=== PATIENT | female | born 1970 | race American Indian/Alaskan Native ===

== ENCOUNTER 2016-07-26 19:52 | Emergency (ER) | payer MEDICARE ==
[2016-07-26 20:28] LABS: Basophils % (Auto) 1.2 % (0.0-1.8); Hematocrit 35.6 % (30.3-42.9); Hemoglobin 11.5 gm/dl (10.1-14.3); Mean Corpuscular HGB Conc 32 % (30-34); Mean Corpuscular Hemoglobin 28 pg (28-32); Mean Corpuscular Volume 87 fl (79-97); Platelet Count 302 K/mm3 (140-440); Red Blood Count 4.09 M/mm3 (3.65-5.03); Red Cell Distribution Width 15.2 % (13.2-15.2); White Blood Count 11.7 K/mm3 (4.5-11.0)
[2016-07-26 20:47] LABS: Anion Gap 18 mmol/L; BUN/Creatinine Ratio 21.66; Blood Urea Nitrogen 13 mg/dL (7-17); Calcium 8.8 mg/dL (8.4-10.2); Carbon Dioxide 27 mmol/L (22-30); Chloride 98.2 mmol/L (98-107); Glucose 151 mg/dL (65-100); Sodium 139 mmol/L (137-145)
[2016-07-27 08:34] VITALS: BP 119/72
--- NOTE | 2016-07-27 08:55 | XRay Report ---
ROUTINE CHEST, TWO VIEWS: HISTORY: Shortness of breath. The trachea, heart, mediastinal contour, lung stokes and bony thorax are unremarkable. IMPRESSION: No acute cardiopulmonary process. No significant change since 12/25/14.
--- NOTE | 2016-07-27 09:35 | Emergency Department Report ---
ED Shortness of Breath HPI - General Chief Complaint: Dyspnea/Respdistress Stated Complaint: PRIMO Time Seen by Provider: 07/27/16 08:30 Source: patient Mode of arrival: Wheelchair Limitations: No Limitations - History of Present Illness Initial Comments: 46-year-old female presents to the emergency department complaining of difficulty breathing and swelling. Patient states she has been having shortness of breath and swelling in her legs for approximately one month. She states that she feels "full". Patient reports a history of CHF. She states her doctor changed her "water pill" recently. There are no other complaints. MD Complaint: shortness of breath -: Gradual, month(s) (1) Pain Scale: 0 Consistency: constant Improves With: nothing Worsens With: nothing Known History Of: congestive heart failure, diabetes Associated Symptoms: other (leg swelling) Treatments Prior to Arrival: none - Related Data Previous Rx's Medication Instructions Recorded Last Taken Type ARIPiprazole [Abilify TAB] 5 mg PO DAILY #30 tab 11/23/14 Unknown Rx Cephalexin [Keflex] 500 mg PO TID #21 capsule 11/23/14 Unknown Rx Furosemide [Lasix] 40 mg PO DAILY #30 tablet 11/23/14 Unknown Rx Levothyroxine [Synthroid] 150 mcg PO QAM #30 tablet 11/23/14 Unknown Rx oxyCODONE /ACETAMINOPHEN [Percocet 1 tab PO Q6HR PRN #14 tablet 12/25/14 Unknown Rx 5/325 mg] Allergies Allergy/AdvReac Type Severity Reaction Status Date / Time shellfish derived Allergy Itching Verified 12/24/14 22:46 ED Review of Systems ROS: Stated complaint: PRIMO Other details as noted in HPI Comment: All other systems reviewed and negative Respiratory: shortness of breath Cardiovascular: edema ED Past Medical Hx - Past Medical History Previous Medical History?: Yes Hx Hypertension: Yes Hx Congestive Heart Failure: Yes Hx Diabetes: Yes Hx Psychiatric Treatment: Yes (paranoid schizophrenia) Additional medical history: thyroid. Sleep apnea - Surgical History Past Surgical History?: Yes Hx Cholecystectomy: Yes Additional Surgical History: c/s x 2 - Family History Family history: no significant - Social History Smoking Status: Current Every Day Smoker Substance Use Type: Alcohol - Medications Home Medications: Home Medications Medication Instructions Recorded Confirmed Last Taken Type ARIPiprazole [Abilify TAB] 5 mg PO DAILY #30 tab 11/23/14 Unknown Rx Cephalexin [Keflex] 500 mg PO TID #21 capsule 11/23/14 Unknown Rx Furosemide [Lasix] 40 mg PO DAILY #30 tablet 11/23/14 Unknown Rx Levothyroxine [Synthroid] 150 mcg PO QAM #30 tablet 11/23/14 Unknown Rx oxyCODONE /ACETAMINOPHEN [Percocet 1 tab PO Q6HR PRN #14 tablet 12/25/14 Unknown Rx 5/325 mg] ED Physical Exam - General Limitations: No Limitations General appearance: alert, in no apparent distress, obese - Head Head exam: Present: atraumatic, normocephalic - Eye Eye exam: Present: normal appearance, PERRL, EOMI - ENT ENT exam: Present: normal exam, normal orophraynx, mucous membranes moist - Neck Neck exam: Present: normal inspection, full ROM. Absent: tenderness - Respiratory Respiratory exam: Present: normal lung sounds bilaterally. Absent: respiratory distress - Cardiovascular Cardiovascular Exam: Present: regular rate, normal rhythm, normal heart sounds - GI/Abdominal GI/Abdominal exam: Present: soft, normal bowel sounds. Absent: distended, tenderness - Extremities Exam Extremities exam: Present: normal inspection, full ROM. Absent: tenderness, pedal edema - Back Exam Back exam: Present: normal inspection, full ROM. Absent: tenderness - Neurological Exam Neurological exam: Present: alert, oriented X3. Absent: motor sensory deficit - Skin Skin exam: Present: warm, dry, intact ED Course Vital Signs 07/26/16 07/27/16 07/27/16 19:58 01:27 07:11 Temperature 98.0 F 97.7 F Pulse Rate 109 H 94 H 86 Respiratory 20 18 16 Rate Blood Pressure 147/92 Blood Pressure 148/96 [Right] O2 Sat by Pulse 95 97 Oximetry 07/27/16 07/27/16 07/27/16 07:15 07:30 07:45 Temperature Pulse Rate 89 89 93 H Respiratory 26 H 21 29 H Rate Blood Pressure 118/71 125/74 129/60 Blood Pressure [Right] O2 Sat by Pulse 97 85 87 Oximetry 07/27/16 07/27/16 07/27/16 08:00 08:15 08:21 Temperature 98.1 F Pulse Rate 93 H 95 H 88 Respiratory 23 23 18 Rate Blood Pressure 119/72 119/72 Blood Pressure 128/77 [Right] O2 Sat by Pulse 88 86 100 Oximetry ED Medical Decision Making - Lab Data Result diagrams: 07/26/16 20:12 07/26/16 20:12 - EKG Data -: EKG Interpreted by Me EKG shows normal: sinus rhythm, axis, intervals, QRS complexes, ST-T waves Rate: normal - EKG Data When compared to previous EKG there are: previous EKG unavailable Interpretation: normal EKG - Radiology Data Radiology results: report reviewed, image reviewed Chest x-ray shows no acute cardiopulmonary abnormality. - Medical Decision Making Lab and imaging results reviewed and discussed with the patient. Patient is an related in the department without difficulty. There is no signs of volume overload or CHF on exam or on x-ray. Patient will be discharged home at this time to follow up with her primary care physician. - Differential Diagnosis volume overload, CHF, renal failure Critical care attestation.: If time is entered above; I have spent that time in minutes in the direct care of this critically ill patient, excluding procedure time. ED Disposition Clinical Impression: Shortness of breath Disposition: DISCHARGED TO HOME OR SELFCARE Is pt being admited?: No Condition: Stable Instructions: Dyspnea (ED) Referrals: PRIMARY CARE, [Primary Care Provider] - 3-5 Days Time of Disposition: 09:43
== END 2016-07-27 09:45 | disposition home or self-care (01) ==
LOC: ED 19:52
DX: R06.02 Shortness of breath (principal); M79.89 Other specified soft tissue disorders; I10 Essential (primary) hypertension; I50.9 Heart failure, unspecified; E11.9 Type 2 diabetes mellitus without complications; F17.200 Nicotine dependence, unspecified, uncomplicated; Z91.013 Allergy to seafood
CPT/HCPCS: 36415; 71020; 80048; 82962; 83880; 84484; 85025; 93005; 93010